=== PATIENT | male | born 2000 | race Hispanic/Latino ===

== ENCOUNTER 2023-09-09 06:39 | Inpatient (IN) | payer OTHER, BC ==
[2023-09-09] MEDS ORDERED: Boostrix 0.5 ML (Tdap) VIAL (>/=7 yrs of age) ONE (07:12)
[2023-09-09 07:22] LABS: #Eosinphils 0.1 thou/uL (0.0-0.7); #Monocytes 0.6 thou/uL (0.11-0.59); #Neutrophils 6.8 thou/uL (1.40-6.50); %Basophils 0.3 % (0.0-1.0); %Eosinophils 0.7 % (0.0-10.0); %Lymphocytes 14.4 % (21.0-51.0); %Monocytes 7.2 % (0.0-10.0); %Neutrophils 76.9 % (42.0-75.0); Hematocrit 42.6 % (42.0-52.0); Hemoglobin 14.3 g/dL (14.0-18.0); Mean Corpuscular HGB CONC 33.6 g/dL (32.0-36.0); Mean Corpuscular Hemoglobin 28.8 pg (27.0-31.0); Mean Corpuscular Volume 85.9 fl (78.0-98.0); Mean Platelet Volume 11.4 fL (7.4-10.4); Platelet Count 226 10x3/uL (130-400); RBC Distribution Width 11.9 % (11.5-14.5); Red Blood Cell (RBC) Count 4.96 mill/uL (4.70-6.10); White Blood Cell (WBC) Count 8.8 10x3/uL (4.8-10.8)
[2023-09-09 07:53] LABS: ALT (SGPT) 138 U/L (8-55); AST (SGOT) 125 U/L (5-34); Alcohol Less than 10.0 mg/dL (Less than 10); Alkaline Phosphatase 60 U/L (40-110); Anion Gap 12 mmol/L (10-20); BUN (Urea Nitrogen) 12 mg/dL (8.9-20.6); Bilirubin, Total 0.5 mg/dL (0.2-1.2); Calc. Creatinine Clearance 0 mL/min (70-130); Carbon Dioxide 22 mmol/L (22-29); Chloride 105 mmol/L (98-107); Estimated GFR 123; Globulin 2.8 g/dL (2.4-3.5); Glucose 131 mg/dL (70-105); Lipase 10 U/L (8-78); Potassium 3.5 mmol/L (3.5-5.1); Protein, Total 6.8 g/dL (6.0-8.3); Sodium 135 mmol/L (136-145)
[2023-09-09] MEDS ORDERED: Ondansetron PF 4 MG/2 ML Vial ONE (07:54)
[2023-09-09] MEDS ORDERED: Morphine 4 MG/ML VIAL ONE ×2 (07:54→10:16)
[2023-09-09] MEDS ORDERED: Ketorolac Tromethamine 30 MG/ML VIAL ONE ×3 (08:38→14:28)
[2023-09-09] MEDS ORDERED: Morphine 2 MG/ML VIAL ONE (08:38)
[2023-09-09] MEDS ORDERED: Ondansetron ODT 4 MG TAB PO PRN (09:38)
[2023-09-09] MEDS ORDERED: Glucagon 1 MG/ML KIT IM PRN (09:38)
[2023-09-09] MEDS ORDERED: Dextrose 50% Abboject 50 ML SYRINGE SLOW IVP PRN (09:38)
[2023-09-09] MEDS ORDERED: Ondansetron PF 4 MG/2 ML Vial IVP PRN (09:38)
[2023-09-09] MEDS ORDERED: Dextrose 5% in Water 1,000 ML IV PRN (09:38)
[2023-09-09] MEDS ORDERED: Morphine 2 MG/ML VIAL SLOW IVP PRN (09:38)
[2023-09-09] MEDS ORDERED: TETANUS, DIPHTHERIA TOX,ADULT (TDVAX) 0.5 ML VIAL IM ONE (09:38)
[2023-09-09] MEDS ORDERED: HYDROcodone/Acetaminophen 10/325 mg Tablet PO PRN (09:52)
[2023-09-09] MEDS ORDERED: hydrALAZINE 20 MG/ML VIAL SLOW IVP PRN (09:56)
[2023-09-09] MEDS ORDERED: Iopamidol 370 76% 100 ML VIAL ONE (10:59)
[2023-09-09] MEDS ORDERED: CEFAZOLIN 2 GM in Sodium Chloride 0.9% 100 ML IVPB SCH (11:30)
[2023-09-09] MEDS ORDERED: PROPOFOL 0 ML ONE (12:14)
[2023-09-09] MEDS ORDERED: Lidocaine 1% PF 5 ML VIAL ONE (12:15)
[2023-09-09] MEDS ORDERED: PHENYLEPHRINE-NS 100 MCG/ML 10 ML SYRINGE ONE (12:17)
[2023-09-09] MEDS ORDERED: EPINEPHrine 1 MG/ML VIAL ONE (12:20)
[2023-09-09] MEDS ORDERED: Bupivacaine PF 0.5% 30 ML VIAL ONE (12:20)
[2023-09-09] MEDS ORDERED: Midazolam HCl 2 mg/2 ml Vial ONE (12:39)
[2023-09-09] MEDS ORDERED: CEFAZOLIN 2 GM VIAL ONE (12:39)
[2023-09-09] MEDS ORDERED: Sodium Chloride 0.9% 100 ML ONE (12:39)
[2023-09-09] MEDS ORDERED: Esmolol 100 MG/10 ML VIAL ONE ×2 (12:55→13:26)
[2023-09-09] MEDS ORDERED: Dexamethasone 20 MG/5 ML VIAL ONE ×2 (12:55→14:28)
[2023-09-09] MEDS ORDERED: fentaNYL PF 100 MCG/2 ML SYRINGE ONE (12:57)
[2023-09-09] MEDS ORDERED: Promethazine HCl 25 MG/ML VIAL IM PRN (14:24)
[2023-09-09] MEDS ORDERED: Morphine Sulfate 2 MG/ML SYRINGE SLOW IVP PRN (14:24)
[2023-09-09] MEDS ORDERED: Ondansetron HCl/PF 4 MG/2 ML Vial IVP PRN (14:24)
[2023-09-09 18:09] VITALS: BMI 35.0
[2023-09-09] MEDS: Amoxicillin/Potassium Clav 875 MG TAB PO SCH (20:00)
[2023-09-09] MEDS: CEFAZOLIN 2 GM in Sodium Chloride 0.9% 100 ML IVPB SCH (20:00)
[2023-09-09] MEDS: traMADol HCl 50 MG TAB PO PRN (20:19)
[2023-09-09] MEDS: Acetaminophen 325 MG TAB PO PRN (20:19)
[2023-09-09] MEDS ORDERED: Polyvinyl Alcohol 1.4%/Povidone 0.6% Opth Drops EA EYE PRN (22:28)
[2023-09-10] MEDS: CEFAZOLIN 2 GM in Sodium Chloride 0.9% 100 ML IVPB SCH (04:09)
[2023-09-10] MEDS: Acetaminophen 325 MG TAB PO PRN (04:57)
[2023-09-10] MEDS: traMADol HCl 50 MG TAB PO PRN (04:58)
[2023-09-10 06:31] LABS: #Monocytes 1.3 thou/uL (0.11-0.59); #Neutrophils 7.8 thou/uL (1.40-6.50); %Basophils 0.1 % (0.0-1.0); %Eosinophils 0.1 % (0.0-10.0); %Lymphocytes 12.4 % (21.0-51.0); %Monocytes 12.1 % (0.0-10.0); %Neutrophils 74.9 % (42.0-75.0); Hematocrit 40.3 % (42.0-52.0); Hemoglobin 13.5 g/dL (14.0-18.0); Mean Corpuscular HGB CONC 33.5 g/dL (32.0-36.0); Mean Corpuscular Volume 86.5 fl (78.0-98.0); Mean Platelet Volume 11.6 fL (7.4-10.4); Platelet Count 261 10x3/uL (130-400); RBC Distribution Width 11.9 % (11.5-14.5); Red Blood Cell (RBC) Count 4.66 mill/uL (4.70-6.10); White Blood Cell (WBC) Count 10.5 10x3/uL (4.8-10.8)
[2023-09-10 06:59] LABS: ALT (SGPT) 101 U/L (8-55); AST (SGOT) 44 U/L (5-34); Albumin 4.2 g/dL (3.5-5.0); Alkaline Phosphatase 58 U/L (40-110); Anion Gap 13 mmol/L (10-20); BUN (Urea Nitrogen) 10 mg/dL (8.9-20.6); Bilirubin, Total 0.6 mg/dL (0.2-1.2); Calc. Creatinine Clearance 222 mL/min (70-130); Calcium 9.2 mg/dL (7.8-10.44); Carbon Dioxide 24 mmol/L (22-29); Chloride 107 mmol/L (98-107); Estimated GFR 126; Glucose 114 mg/dL (70-105); Potassium 4.1 mmol/L (3.5-5.1); Protein, Total 7.2 g/dL (6.0-8.3); Sodium 140 mmol/L (136-145)
[2023-09-10] MEDS: Amoxicillin/Potassium Clav 875 MG TAB PO SCH ×2 (08:41→20:36)
[2023-09-10] MEDS ORDERED: traMADol HCl 50 MG TAB PO PRN (09:09)
[2023-09-10] MEDS: Acetaminophen 500 MG TAB PO SCH ×2 (11:50→17:36)
[2023-09-10] MEDS: Ibuprofen 600 MG TAB PO SCH ×2 (17:35→20:36)
[2023-09-11] MEDS: Acetaminophen 500 MG TAB PO SCH ×5 (06:00→23:23)
[2023-09-11] MEDS: Amoxicillin/Potassium Clav 875 MG TAB PO SCH ×2 (10:53→20:49)
[2023-09-11] MEDS: Ibuprofen 600 MG TAB PO SCH ×3 (10:53→20:49)
[2023-09-12] MEDS: Acetaminophen 500 MG TAB PO SCH ×3 (05:14→18:56)
[2023-09-12] MEDS: Amoxicillin/Potassium Clav 875 MG TAB PO SCH ×2 (09:12→21:59)
[2023-09-12] MEDS: Ibuprofen 600 MG TAB PO SCH ×3 (09:12→21:59)
[2023-09-13] MEDS: Acetaminophen 500 MG TAB PO SCH ×3 (00:15→11:49)
[2023-09-13] MEDS: Ibuprofen 600 MG TAB PO SCH (09:03)
[2023-09-13] MEDS: Amoxicillin/Potassium Clav 875 MG TAB PO SCH (09:03)
[2023-09-13 11:42] VITALS: TEMP 97.9
[2023-09-13 16:24] VITALS: BP 123/90
== END 2023-09-13 16:26 | disposition home or self-care (01) | DRG 493 ==
LOC: ERS 06:39 → SURG B 09:38
PROVIDERS: ADMIT Surgery; ATTEND Surgery
PROC: 3E033XZ Introduction of Vasopressor into Peripheral Vein, Percutaneous Approach (ICD-10-PCS; principal; 2023-09-09)
PROC: 0QSG06Z Reposition Right Tibia with Intramedullary Internal Fixation Device, Open Approach (ICD-10-PCS; 2023-09-09)
DX: S82.301A Unspecified fracture of lower end of right tibia, initial encounter for closed fracture (principal); S32.010A Wedge compression fracture of first lumbar vertebra, initial encounter for closed fracture; S82.831A Other fracture of upper and lower end of right fibula, initial encounter for closed fracture; V64 Occupant of heavy transport vehicle injured in collision with heavy transport vehicle or bus; Z98.890 Other specified postprocedural states; Z79.899 Other long term (current) drug therapy
CPT/HCPCS: 36415; 36416; 70450; 71260; 72125; 74177; 80053; 80307; 83690; 85025; 90471; 90715; 93005; 96374; 96375; 96376; C1713; C1769; G0390; J0171; J1100; J1650; J1885; J2250; J2270; J2272; J2405; J2704; J3490; Q9967; S0020